=== PATIENT | male | born 1965 | race Caucasian/White ===

== ENCOUNTER 2020-12-31 00:33 | Emergency (ER) | payer OTHER ==
[~2020-12-31] VITALS: Ht 180.3 cm; Wt 62.7 kg
[~2020-12-31 00:33] MED LIST: ABILIFY 400 MG IM; ABILIFY IM; ARIP2TAB3 PO; FERR325T14 PO; FERR325T72 PO; LEVO88TA70 PO; PANT40TA77 PO; RISP1TAB43 PO
[2020-12-31 01:30] LABS: BASO # 0.1 x10^3/uL (0.0-0.2); BASO % 1 % (0-3); EOS % 0 % (0-3); HEMATOCRIT 32.3 % (39.0-53.0); HEMOGLOBIN 8.7 g/dL (13.0-17.5); LYMPH # 1.7 x10^3/uL (1.0-4.8); LYMPH % 13 % (24-48); MEAN CORPUSCULAR HEMOGLOBIN 17 pg (25-35); MEAN CORPUSCULAR HGB CONC 27 g/dL (31-37); MEAN CORPUSCULAR VOLUME 61 fL (79-100); MONO # 0.5 x10^3/uL (0.0-1.1); MONO % 4 % (0-9); NEUT # 10.8 x10^3/uL (1.8-7.7); NEUT % 83 % (31-73); PLATELET COUNT 576 x10^3/uL (140-400); RED BLOOD COUNT 5.26 x10^6/uL (4.30-5.70); RED CELL DISTRIBUTION WIDTH 20.3 % (11.5-14.5); WHITE BLOOD COUNT 13.1 x10^3/uL (4.0-11.0)
[2020-12-31 01:35] LABS: CALCIUM 8.5 mg/dL (8.5-10.1); GFR 78.2
[2020-12-31 01:39] LABS: ETHANOL < 10 mg/dL (0-10); SALIC < 2.8 mg/dL (2.8-20.0)
[2020-12-31 01:40] LABS: ACETAMIN < 2 mcg/ml (10-30); ALBUMIN 3.8 g/dL (3.4-5.0); TOTAL BILIRUBIN 0.8 mg/dL (0.2-1.0); TOTAL PROTEIN 7.5 g/dL (6.4-8.2)
[2020-12-31 01:57] LABS: HYPOCHROMIA MARKED; PLT ESTIMATE INCREASED (ADEQUATE); POIKILOCYTOSIS MOD
[2020-12-31 01:58] LABS: ANISOCYTOSIS MOD; MICROCYTOSIS MARKED; OVALOCYTES MOD; POLYCHROMASIA SLIGHT; TEAR DROP CELLS MOD
[2020-12-31 01:59] LABS: SCHISTOCYTES OCC
--- NOTE | 2020-12-31 02:24 | PHYS DOC ---
Past Medical History Past Medical History: Other Additional Past Medical Histor: raynauds, internal bleeds (ANGELA HOWARD DO) Past Surgical History: Tonsillectomy, Other Additional Past Surgical Histo: hernia repair, abd surgery (ANGELA HOWARD DO) Smoking Status: Never Smoker Alcohol Use: None (ANGELA HOWARD DO) General Adult EDM: Chief Complaint: OTHER COMPLAINTS HPI: HPI: Patient is a 55 year old male presents via EMS for evaluation. Patient denies any current medications. He states tonight he walked from [place] here to [facility]. States someone at 05/14 called the ambulance. Patient states he was walking here because of the voices he is hearing. Patient states he is been hearing voices since 2011. Because of the voices patient tells me does not want to go back to [place] because he fears for his safety. Patient states voices tell him "random things". Patient denies any homicidal or suicidal ideation. (ANGELA HOWARD DO) Review of Systems: Review of Systems: Constitutional: Denies fever or chills. [] Eyes: Denies change in visual acuity. [] HENT: Denies nasal congestion or sore throat. [] Respiratory: Denies cough or shortness of breath. [] Cardiovascular: Denies chest pain or edema. [] GI: Denies abdominal pain, nausea, vomiting, bloody stools or diarrhea. [] : Denies dysuria. [] Musculoskeletal: Denies back pain or joint pain. [] Integument: Denies rash. [] Neurologic: Denies headache, focal weakness or sensory changes. [] Endocrine: Denies polyuria or polydipsia. [] Lymphatic: Denies swollen glands. [] Psychiatric: Denies depression or anxiety. [Positive hallucination] (ANGELA HOWARD DO) Heart Score: Risk Factors: Risk Factors: DM, Current or recent (<one month) smoker, HTN, HLP, family history of CAD, obesity. Risk Scores: Score 0 - 3: 2.5% MACE over next 6 weeks - Discharge Home Score 4 - 6: 20.3% MACE over next 6 weeks - Admit for Clinical Observation Score 7 - 10: 72.7% MACE over next 6 weeks - Early Invasive Strategies (ANGELA HOWARD DO) Allergies: Allergies: Allergies Coded Allergies Type Severity Reaction Last Updated Verified aspirin Allergy Intermediate internal bleeding 12/31/20 Yes (ANGELA HOWARD DO) Physical Exam: PE: General: alert, no acute distress. Skin: warm, dry and intact. Head:: Normocephalic, atraumatic. Neck: Trachea midline. Eyes: EOMI, Normal conjunctiva, No drainage CARDIOVASCULAR: Regular rate and rhythm RESPIRATORY: No respiratory distress Back: Full range of motion. MUSCULOSKELETAL: Full range of motion of bilateral upper and lower extremities. GASTROINTESTINAL: Abdomen soft without rebound or guarding. NEUROLOGICAL: Alert and noted to person, place and time. No neurological deficits observed Psychiatric: Cooperative. Normal judgment (ANGELA HOWARD DO) Current Patient Data: Labs: Laboratory Tests Test 12/31/20 01:20 White Blood Count 13.1 x10^3/uL (4.0-11.0) H Red Blood Count 5.26 x10^6/uL (4.30-5.70) Hemoglobin 8.7 g/dL (13.0-17.5) L Hematocrit 32.3 % (39.0-53.0) L Mean Corpuscular Volume 61 fL (79-100) L Mean Corpuscular Hemoglobin 17 pg (25-35) L Mean Corpuscular Hemoglobin Concent 27 g/dL (31-37) L Red Cell Distribution Width 20.3 % (11.5-14.5) H Platelet Count 576 x10^3/uL (140-400) H Neutrophils (%) (Auto) 83 % (31-73) H Lymphocytes (%) (Auto) 13 % (24-48) L Monocytes (%) (Auto) 4 % (0-9) Eosinophils (%) (Auto) 0 % (0-3) Basophils (%) (Auto) 1 % (0-3) Neutrophils # (Auto) 10.8 x10^3/uL (1.8-7.7) H Lymphocytes # (Auto) 1.7 x10^3/uL (1.0-4.8) Monocytes # (Auto) 0.5 x10^3/uL (0.0-1.1) Eosinophils # (Auto) 0.0 x10^3/uL (0.0-0.7) Basophils # (Auto) 0.1 x10^3/uL (0.0-0.2) Platelet Estimate Increased (ADEQUATE) Polychromasia Slight Hypochromasia Marked Poikilocytosis Mod Anisocytosis Mod Microcytosis Marked Tear Drop Cells Mod Ovalocytes Mod Schistocytes Occ Sodium Level 137 mmol/L (136-145) Potassium Level 4.0 mmol/L (3.5-5.1) Chloride Level 101 mmol/L (98-107) Carbon Dioxide Level 17 mmol/L (21-32) L Anion Gap 19 (6-14) H Blood Urea Nitrogen 16 mg/dL (8-26) Creatinine 1.0 mg/dL (0.7-1.3) Estimated GFR (Cockcroft-Gault) 78.2 BUN/Creatinine Ratio 16 (6-20) Glucose Level 78 mg/dL (70-99) Calcium Level 8.5 mg/dL (8.5-10.1) Total Bilirubin 0.8 mg/dL (0.2-1.0) Aspartate Amino Transferase (AST) 64 U/L (15-37) H Alanine Aminotransferase (ALT) 33 U/L (16-63) Alkaline Phosphatase 124 U/L (46-116) H Total Protein 7.5 g/dL (6.4-8.2) Albumin 3.8 g/dL (3.4-5.0) Albumin/Globulin Ratio 1.0 (1.0-1.7) Salicylates Level < 2.8 mg/dL (2.8-20.0) L Salicylate Last Dose Date Unk Salicylate Last Dose Time Unk Acetaminophen Level < 2 mcg/ml (10-30) L Acetaminophen Last Dose Date Unk Acetaminophen Last Dose Time Unk Ethyl Alcohol Level < 10 mg/dL (0-10) Laboratory Tests 12/31/20 01:20 Laboratory Tests 12/31/20 01:20 Vital Signs: Vital Signs Date Time Temp Pulse Resp B/P (MAP) Pulse Ox O2 Delivery O2 Flow Rate FiO2 12/31/20 00:40 97.5 74 20 117/64 (81) 96 Room Air 97.5 (ANGELA HOWARD DO) EKG: EKG: [] (ANGELA HOWARD DO) Radiology/Procedures: Radiology/Procedures: [] (ANGELA HOWARD DO) Course & Med Decision Making: Course & Med Decision Making Pertinent Labs and Imaging studies reviewed. (See chart for details) [] Patient medically cleared @ 0400 for psychiatric admission if needed. (ANGELA HOWARD I DO) Course & Med Decision Making 55-year-old male past medical history of schizophrenia, raynauds syndrome and Osler Valverde Rendu, c/o "the voices are telling me I'm not safe and I'm homeless." PAT consult performed-has an apartment in [place]. Pt denies SI/HI. Has no paranoia, GCS15. Has been on Invega and Abilify but noncompliant for the past year and a half. Believes his last hemoglobin was 9 or 10. Denies any active melena, hematochezia, hematemesis or hemoptysis. No trauma or head injury. Labs show microcytic anemia, no prior for baseline comparison. Pt very knowledgeable and directable, has [facility]. Physical exam w/LE dystonia and pill r olling tremors. Other than auditory hallucinations, patients' schizophrenia controlled, has no psychosis, can care for self. Will discharge home with strict ED return precautions were given for homicidal or suicidal ideations. Encouraged urgent outpatient follow-up with PMD and psychiatry outpt. Life- threatening processes were considered but are low suspicion at this time, given history, physical exam and ED workup. Pt was educated on all prescription medications and adverse effects. All patient's questions were answered and pt was stable at time of discharge. Life/limb-threatening differential includes but is not limited to, end organ damage/sepsis, trauma/abuse/neglect, neurologic deficit, alcohol/drug ingestion, toxidrome, suicidal/homicidal ideations plans or attempts, psychosis or mental illness resulting in self neglect and inability to care for self. I spoken with the patient and her caregivers. I explained the patient's condition, diagnoses and treatment plan based on the information available to me at this time. I have answered the patient and her caregiver's questions and addressed any concerns. The patient and her caregivers have a good understanding of patient's diagnosis, condition and treatment plan as can be expected at this point. Vital signs have been stable. Patient's condition is stable and appropriate for discharge from the emergency department. Patient will pursue further outpatient evaluation with primary care physician or other designated or consulting physician as outlined in the discharge instructions. The patient and/or caregivers are agreeable to this plan of care and follow-up instructions have been explained in detail. The patient and/or caregivers have received these instructions in written form and have expressed an understanding of the discharge instructions. The patient and/or caregivers are aware that any significant change of condition or worsening of symptoms should prompt immediate return to this or the closest emergency department or call to 911. (MANOLO DYSON DO) Constanza Disclaimer: Dragchelo Disclaimer: This electronic medical record was generated, in whole or in part, using a voice recognition dictation system. (ANGELA HOWARD DO) Departure Departure Impression: Primary Impression: Auditory hallucinations Additional Impressions: Microcytic anemia Schizophrenia Disposition: 01 DC HOME SELF CARE/HOMELESS Condition: STABLE Referrals: CASSIUS PAINTING MD FOLLOW UP WITH FAMILY MEDICINE: Family Medicine Address: [address] [facility] [place] [address] Patient Instructions: Hallucinations and Delusions, Iron Deficiency Anemia, Schizophrenia Additional Instructions: FOLLOW UP WITH PSYCHIATRY: Dr. Radu Ceron Psychiatry Specialist [address], [place] [address] EMERGENCY DEPARTMENT GENERAL DISCHARGE INSTRUCTIONS Thank you for coming to [facility] Emergency Department (ED) today and trusting us with you care. We trust that you had a positive experience in our Emergency Department. If you wish to speak to the department management, you may call the Director at [phone]. YOUR FOLLOW UP INSTRUCTIONS ARE FOLLOWS: 1. Do you have a private Doctor? If you do not have a private doctor, please ask for a resource list of physicians or clinics that may be able to assist you with follow up care. 2. The Emergency Physicain has interpreted your x-rays. The X-Ray specialist will also review them. If there is a change in the findings, you will be notified in 48 hours when at all possible. 3. A lab test or culture has been done, your results will be reviewed and you will be notified if you need a change in treatment. ADDITIONAL INSTRUCTIONS AND INFORMATION: 1. Your care today has been supervised by a physician who is specially trained in emergency care. Many problems require more than one evaluation for a complete diagnosis and treatment. We recommend that you schedule your follow up appointment as recommended to ensure complete treatment of you illness or injury. If you are unable to obtain follow up care and continue to have a problem, or if your condition worsens, we recommend that you return to the ED. 2. We are not able to safely determine your condition over the phone nor are we able to give sound medical advice over the phone. For these safety reasons, if you call for medical advice we will ask you to come to the ED for further evaluation. 3. If you have any questions regarding these discharge instructions please call the ED at [phone]. SAFETY INFORMATION: In the interest of safety, wellness, and injury prevention; we encourage you to wear your sealbelt, if you smoke; quite smoking, and we encourage family to use a protective helmet for bicycling and other sporting events that present an increased risk for head injury. IF YOUR SYMPTOMS WORSEN OR NEW SYMPTOMS DEVELOP, OR YOU HAVE CONCERNS ABOUT YOUR CONDITION; OR IF YOUR CONDITION WORSENS WHILE YOU ARE WAITING FOR YOUR FOLLOW UP APPOINTMENT; EITHER CONTACT YOUR PRIMARY CARE DOCTOR, THE PHYSICIAN WHOSE NAME AND NUMBER YOU WERE GIVEN, OR RETURN TO THE ED IMMEDIATELY. ANGELA HOWARD I DO Dec 31, 2020 02:24 MANOLO DYSON DO Dec 31, 2020 06:48
[2020-12-31 03:18] LABS: BARBITURATES NEG (NEG); BENZODIAZEPINES NEG (NEG); CANNABINOIDS NEG (NEG); COCAINE NEG (NEG); METHADONE NEG (NEG); OPIATES NEG (NEG); PHENCYCLIDINE NEG (NEG)
[2020-12-31 03:23] LABS: AMPHETAMINE/METHAMPHETAMINE NEG (NEG)
[2020-12-31 09:45] VITALS: BP 128/74
== END 2020-12-31 10:09 | disposition home or self-care (01) ==
LOC: EDBD 00:33 → ER 00:33
DX: F20.9 Schizophrenia, unspecified (principal); D50.9 Iron deficiency anemia, unspecified; Z88.6 Allergy status to analgesic agent
CPT/HCPCS: 36415; 80053; 80307; 80329; 85025; 87426; 99285; C9803; G0480; U0003

== ENCOUNTER 2021-02-05 19:58 | Emergency (ER) | payer OTHER ==
[~2021-02-05] VITALS: Ht 180.3 cm; Wt 61.4 kg
[2021-02-05] MEDS ORDERED: ACETAMINOPHEN 325 MG TABLET. PO ONE (20:30)
--- NOTE | 2021-02-05 21:23 | PHYS DOC ---
Past Medical History Past Medical History: Other Additional Past Medical Histor: raynauds, internal bleeds Past Surgical History: Tonsillectomy, Other Additional Past Surgical Histo: hernia repair, abd surgery Smoking Status: Never Smoker Alcohol Use: None General Adult EDM: Chief Complaint: LOWER EXT PAIN HPI: HPI: Patient is a 55 year old male presents with 2-3 hours of bilateral lower leg pain. Pain from feet to knees. He has full range of motoin to his lower extremities. Patient ambulates with a steady gait. Patient denies any injuries. Patient is homeless. Review of Systems: Review of Systems: Constitutional: Denies fever or chills. [] Eyes: Denies change in visual acuity. [] HENT: Denies nasal congestion or sore throat. [] Respiratory: Denies cough or shortness of breath. [] Cardiovascular: Denies chest pain or edema. [] GI: Denies abdominal pain, nausea, vomiting, bloody stools or diarrhea. [] : Denies dysuria. [] Musculoskeletal: Denies back pain or joint pain. [positive leg pain] Integument: Denies rash. [] Neurologic: Denies headache, focal weakness or sensory changes. [] Endocrine: Denies polyuria or polydipsia. [] Lymphatic: Denies swollen glands. [] Psychiatric: Denies depression or anxiety. [] Heart Score: C/O Chest Pain: N/A Risk Factors: Risk Factors: DM, Current or recent (<one month) smoker, HTN, HLP, family history of CAD, obesity. Risk Scores: Score 0 - 3: 2.5% MACE over next 6 weeks - Discharge Home Score 4 - 6: 20.3% MACE over next 6 weeks - Admit for Clinical Observation Score 7 - 10: 72.7% MACE over next 6 weeks - Early Invasive Strategies Current Medications: Current Medications Medications (Trade) Dose Ordered Sig/Zaid Start Time Stop Time Status Last Admin Dose Admin Acetaminophen (Tylenol) 650 mg 1X ONCE 02/05/21 20:30 02/05/21 20:31 DC 02/05/21 20:43 650 MG Allergies: Allergies: Allergies Coded Allergies Type Severity Reaction Last Updated Verified aspirin Allergy Intermediate internal bleeding 12/31/20 Yes Physical Exam: PE: General: alert, no acute distress. Skin: Sunburn neck bilateral arms to hands Head:: Normocephalic, atraumatic. Neck: Trachea midline. Eyes: EOMI, Normal conjunctiva, No drainage CARDIOVASCULAR: Regular rate and rhythm RESPIRATORY: No respiratory distress Back: Full range of motion. MUSCULOSKELETAL: Full range of motion of bilateral upper and lower extremities. No lower extremity swelling no lower extremity open wounds GASTROINTESTINAL: Abdomen soft without rebound or guarding. NEUROLOGICAL: Alert and noted to person, place and time. No neurological deficits observed patient ambulates with a steady gait Psychiatric: Cooperative. Normal judgment Current Patient Data: Vital Signs: Vital Signs Date Time Temp Pulse Resp B/P (MAP) Pulse Ox O2 Delivery O2 Flow Rate FiO2 02/05/21 20:08 97.9 83 16 119/72 (88) 99 Room Air 97.9 EKG: EKG: [] Radiology/Procedures: Radiology/Procedures: [] Course & Med Decision Making: Course & Med Decision Making Pertinent Labs and Imaging studies reviewed. (See chart for details) [] Dragon Disclaimer: Dragon Disclaimer: This electronic medical record was generated, in whole or in part, using a voice recognition dictation system. Departure Departure Impression: Primary Impression: Leg pain, bilateral Additional Impression: Homeless Disposition: 01 DC HOME SELF CARE/HOMELESS Condition: STABLE Referrals: JANELLE VALENZUELA MD (PCP) Patient Instructions: Musculoskeletal Pain ANGELA HOWARD DO Feb 05, 2021 21:23
[2021-02-05 21:38] VITALS: BP 132/70
== END 2021-02-05 21:48 | disposition home or self-care (01) ==
LOC: ER 19:58
DX: M79.661 Pain in right lower leg (principal); M79.662 Pain in left lower leg; Z59.0 Homelessness; Z90.89 Acquired absence of other organs; Z98.890 Other specified postprocedural states; Z88.8 Allergy status to other drugs, medicaments and biological substances
CPT/HCPCS: 99282

== ENCOUNTER 2021-02-05 23:34 | Emergency (ER) | payer OTHER ==
[~2021-02-05] VITALS: Ht 180.3 cm; Wt 65.9 kg
[2021-02-06 00:12] VITALS: BP 104/59
--- NOTE | 2021-02-06 00:15 | PHYS DOC ---
Past Medical History Past Medical History: Other Additional Past Medical Histor: raynauds, internal bleeds Past Surgical History: Tonsillectomy, Other Additional Past Surgical Histo: hernia repair, abd surgery Smoking Status: Never Smoker Alcohol Use: None General Adult EDM: Chief Complaint: MANIC BEHAVIOR HPI: HPI: Patient is a 55 year old male checks in with the chief complaint of "i dont want my freedom any more" Patient seen earlier with the complaint of bilateral feet pain. Patient homeless and was discharged after feeding and providing care home information. Patient is homeless--- after discharge patient checked back in. During my exam -- patient uncooperative. Requires awakening during HPI. Patient seems more interested in sleeping. Patient states he doesnt want his freedom-- but denies HI or SI. Review of Systems: Review of Systems: Uncooperative Heart Score: C/O Chest Pain: N/A Risk Factors: Risk Factors: DM, Current or recent (<one month) smoker, HTN, HLP, family history of CAD, obesity. Risk Scores: Score 0 - 3: 2.5% MACE over next 6 weeks - Discharge Home Score 4 - 6: 20.3% MACE over next 6 weeks - Admit for Clinical Observation Score 7 - 10: 72.7% MACE over next 6 weeks - Early Invasive Strategies Allergies: Allergies: Allergies Coded Allergies Type Severity Reaction Last Updated Verified aspirin Allergy Intermediate internal bleeding 12/31/20 Yes Physical Exam: PE: General: alert, no acute distress. Skin: Burn neck bilateral arm no blistering Head:: Normocephalic, atraumatic. Neck: Trachea midline. Eyes: EOMI, Normal conjunctiva, No drainage CARDIOVASCULAR: Regular rate and rhythm RESPIRATORY: No respiratory distress Back: Full range of motion. MUSCULOSKELETAL: Full range of motion of bilateral upper and lower extremities. GASTROINTESTINAL: Abdomen soft without rebound or guarding. NEUROLOGICAL: Alert and noted to person, place and time. No neurological deficits observed Psychiatric: unCooperative. Denies HI denies SI Current Patient Data: Vital Signs: Vital Signs Date Time Temp Pulse Resp B/P (MAP) Pulse Ox O2 Delivery O2 Flow Rate FiO2 02/05/21 23:40 98.2 67 101/57 (72) 99 Room Air 98.2 EKG: EKG: [] Radiology/Procedures: Radiology/Procedures: [] Course & Med Decision Making: Course & Med Decision Making Pertinent Labs and Imaging studies reviewed. (See chart for details) [] Dragon Disclaimer: Dragon Disclaimer: This electronic medical record was generated, in whole or in part, using a voice recognition dictation system. Departure Departure Impression: Primary Impression: Homeless Additional Impression: Sunburn Disposition: 01 DC HOME SELF CARE/HOMELESS Condition: STABLE Referrals: JANELLE VALENZUELA MD (PCP) Patient Instructions: Medical Screening Exam, Sunburn ANGELA HOWARD DO Feb 06, 2021 00:15
== END 2021-02-06 00:25 | disposition home or self-care (01) ==
LOC: ER 23:34
DX: L55.0 Sunburn of first degree (principal); M79.671 Pain in right foot; M79.672 Pain in left foot; Z59.0 Homelessness
CPT/HCPCS: 99281